=== PATIENT | female | born 1965 | race Caucasian/White ===

== ENCOUNTER → 2017-01-20 | Outpatient (CLI) | payer MEDICAID ==
[~2017-01-20] MED LIST: BETA2500 PO; BIOT25007 PO; DOCU100C37 PO; FLUT1DIS26 IH; GABA-486 PO; GABA600T2 PO; HYDR-3812 PO; HYDR-3816 PO; MULT-1021 PO; NAPR250T2 PO; RT-ALBUINH IH; SIME80TA16 PO; TRAZ150T72 PO; VITA-252 PO
== END ==
LOC: RAD 08:19
PROVIDERS: ATTEND Nurse Practitioner Family
DX: N64.4 Mastodynia (principal)

== ENCOUNTER 2017-02-01 12:16 | Outpatient (CLI) | payer MEDICAID ==
[~2017-02-01] VITALS: Ht 167.6 cm; Wt 62.6 kg
[~2017-02-01 12:16] MED LIST changes: -BETA2500 PO; -BIOT25007 PO; -DOCU100C37 PO; -GABA600T2 PO; -HYDR-3816 PO; -MULT-1021 PO; -NAPR250T2 PO; -SIME80TA16 PO; -TRAZ150T72 PO; -VITA-252 PO
[2017-02-01 12:23] VITALS: BP 140/96
[2017-02-01] MEDS ORDERED: GABA600T2 PO (12:30)
[2017-02-01] MEDS ORDERED: TRAZ150T72 PO (12:30)
[2017-02-01] MEDS ORDERED: VITA-252 PO (12:45)
[2017-02-01] MEDS ORDERED: MULT-1021 PO (12:45)
[2017-02-01] MEDS ORDERED: BIOT25007 PO (12:55)
[2017-02-01] MEDS ORDERED: BETA2500 PO (12:55)
== END 2017-02-01 12:44 | disposition home or self-care (01) ==
LOC: PREOP 12:16
PROVIDERS: ATTEND Obstetrics & Gynecology
DX: Z01.812 Encounter for preprocedural laboratory examination (principal); Z11.2 Encounter for screening for other bacterial diseases; N93.9 Abnormal uterine and vaginal bleeding, unspecified; N87.9 Dysplasia of cervix uteri, unspecified
CPT/HCPCS: 84703; 87081

== ENCOUNTER → 2017-02-01 | Outpatient (CLI) | payer MEDICAID ==
--- NOTE | 2017-02-01 18:08 | Diagnostic Imaging Report ---
Bilateral diagnostic mammogram. The current study was also evaluated with a Computer Aided Detection (CAD) system. COMPARISON: 12/19/2015. INDICATION: Bilateral breast pain, left breast lump. FINDINGS: The breasts are composed of heterogeneously dense parenchyma which may decrease mammographic sensitivity. This is mostly in the lateral aspect of each breast. There is a lobulated nodule with suggestion of central hilum seen projecting in the posterior central aspect of the right MLO view with similar appearing minimally smaller nodules seen on 2016 exam just above this location probably the same lymph node in the axillary tail region of the right breast. There is no suspicious calcification seen. IMPRESSION: No mammographic evidence of malignancy. Ultrasound evaluation pending. ACR BI-RADS Category 0: Incomplete. (Needs additional imaging evaluation). Result letter will be mailed to the patient. Note: At least 10% of breast cancer is not imaged by mammography. Dictated by: Dictated on workstation # [id number]
--- NOTE | 2017-02-01 18:10 | Diagnostic Imaging Report ---
Bilateral breast ultrasound. INDICATION: Bilateral breast pain and the patient also describes milky discharge on and off and relates to the cycle. FINDINGS: There is retroareolar duct ectasia seen bilaterally. The rest of the breast parenchyma and four quadrants on both sides demonstrate no suspicious abnormality. IMPRESSION: Duct ectasia. Clinical follow-up recommended. ACR BI-RADS Category 2: Benign findings. Dictated by: Dictated on workstation # [id number]
== END ==
LOC: RAD 07:31
PROVIDERS: ATTEND Nurse Practitioner Family
DX: N64.4 Mastodynia (principal)
CPT/HCPCS: 77066

== ENCOUNTER 2017-02-04 06:00 | Day surgery (SDC) | payer MEDICAID ==
[~2017-02-04] VITALS: Ht 167.6 cm; Wt 62.6 kg
[~2017-02-04 06:00] MED LIST changes: +BETA2500 PO; +BIOT25007 PO; +GABA600T2 PO; +MULT-1021 PO; +TRAZ150T72 PO; +VITA-252 PO
[2017-02-04 06:15] VITALS: BP_SYST 126; BP_DIAS 79; BP_DIAS 95
[2017-02-04] MEDS ORDERED: fentaNYL INJECTION 250 MCG/5 ML AMP ONE (06:44)
[2017-02-04] MEDS ORDERED: LIDOCAINE PF 2% 10 ML (XYLOCAINE) AMP ONE (06:44)
[2017-02-04] MEDS ORDERED: proPOfol 200 MG/20 ML (DIPRIVAN) VIAL IV ONE (06:44)
[2017-02-04] MEDS ORDERED: ONDANSETRON 4 MG/2 ML (SDV) Z0FRAN ONE ×3 (06:44→08:58)
[2017-02-04] MEDS ORDERED: DEXAMETHASONE PF 10 MG/ML (DECADRON) VIAL ONE (06:44)
[2017-02-04] MEDS ORDERED: MIDAZOLAM 2 MG/2 ML (VERSED) VIAL ONE (06:45)
[2017-02-04] MEDS ORDERED: ROCURONIUM 50 MG/5 ML (ZEMURON) VIAL IV ONE (06:45)
[2017-02-04] MEDS: LACTATED RINGERS 1,000 ML IV PRN ×2 (06:58→07:55)
[2017-02-04] MEDS ORDERED: metroNIDAZOLE 500 MG/100 ML IVPB (PRE-MIX) IV ONE (07:00)
[2017-02-04] MEDS ORDERED: ceFAZolin 1 GM/NS 50 ML IVPB IV ONE ×2 (07:00)
[2017-02-04] MEDS ORDERED: ONDANSETRON 4 MG/2 ML (SDV) Z0FRAN IV ONE (07:00)
[2017-02-04] MEDS ORDERED: SCOPOLAMINE 1.5 MG (TRANSDERM-SCOP) PATCH TOP ONE (07:00)
[2017-02-04] MEDS ORDERED: FAMOTIDINE 20MG/2ML IV (PEPCID) IV ONE (07:00)
--- NOTE | 2017-02-04 07:10 | Progress Note-Pre Operative ---
Pre-Operative Progress Note H&P Reviewed The H&P was reviewed, patient examined and no changes noted. Date H&P Reviewed: Feb 04, 2017 Time H&P Reviewed: 07:00 Pre-Operative Diagnosis: Recurrent cervical dysplasia, AUB, Vaginal wall polyp JADA IRVING DO Feb 04, 2017 7:10 am
[2017-02-04] MEDS ORDERED: BUPIVACAINE 0.25% 30 ML (SENSORCAINE) VIAL ONE (07:23)
[2017-02-04] MEDS ORDERED: LACTATED RINGERS 2,000 ML IV ONE (07:55)
[2017-02-04] MEDS ORDERED: hydrALAZINE (APESOLINE) 20 MG/ML VIAL ONE (08:30)
[2017-02-04] MEDS ORDERED: diphenhydrAMINE 50 MG/ML INJ (BENADRYL) ONE (08:53)
[2017-02-04] MEDS ORDERED: GLYCOPYRROLATE 0.2 MG/ML (ROBINUL) 2 ML VIAL ONE (08:53)
[2017-02-04] MEDS ORDERED: NEOSTIGMINE (BLOXIVERZ ) 1 MG/1ML 10 ML VIAL ONE (08:53)
[2017-02-04] MEDS ORDERED: HYDROmorphone (DILAUDID) 2 MG/ML VIAL ONE (08:58)
[2017-02-04] MEDS ORDERED: morphine INJ 10 MG/ML 1ML (SYR OR VIAL) ONE (08:58)
[2017-02-04] MEDS ORDERED: SEVOFLURANE (ULTANE) 15 ML INHAL SOLN ONE (09:00)
[2017-02-04] MEDS ORDERED: LACTATED RINGERS 1,000 ML IV SCH (09:09)
--- NOTE | 2017-02-04 09:12 | Discharge Inst-Women's Service ---
Discharge Inst-Women's Serv Depart Medication/Instructions New, Converted or Re-Newed RX: RX on Chart Consults/Follow Up Additional Follow Up: Yes Orders/Referrals 7-10 days and in 8 weeks Activity Activity: Activity as Tolerated Driving Instructions: No Driving for 1 Week NO SMOKING: NO SMOKING Nothing Inside Vagina: No Douching, No Tampons Diet Discharge Diet: No Restrictions Symptoms to Report to : Bleeding Excessive, Pain Increased, Fever Over 101 Degrees F, Vaginal Bleeding Increase, Questions/Concerns For Any Problems or Questions: Contact Your Physician Skin/Wound Care Infection Signs and Symptoms: Increased Redness, Foul Odor of Wound, Increased Drainage, Skin Itchy or Has a Rash, Increased Swelling, Temperature Above 101 F Operative Area Clean and Dry: Keep Incision Clean/Dry Stitches/Parrish/Dermabond: Dermabond, Care of Stitches Bathing Instructions: JADA Redmond DO Feb 04, 2017 09:12
[2017-02-04] MEDS ORDERED: SIME80TA16 PO (09:14)
[2017-02-04] MEDS ORDERED: NAPR250T2 PO (09:14)
[2017-02-04] MEDS ORDERED: HYDR-3816 PO (09:14)
[2017-02-04] MEDS ORDERED: DOCU100C37 PO (09:14)
[2017-02-04] MEDS ORDERED: ZOLPIDEM 5 MG (AMBIEN) TAB PO PRN (09:15)
[2017-02-04] MEDS ORDERED: SIMETHICONE 80 MG (MYLICON) CHEW PO PRN (09:15)
[2017-02-04] MEDS ORDERED: ONDANSETRON 4 MG/2 ML (SDV) Z0FRAN IV PRN (09:15)
[2017-02-04] MEDS ORDERED: ANTACID SUSP 30 ML UDC (MYLANTA) PO PRN (09:15)
[2017-02-04] MEDS ORDERED: ONDANSETRON 4 MG/2 ML (SDV) Z0FRAN IVP PRN (09:15)
[2017-02-04] MEDS ORDERED: CHLORASEPTIC LOZENGE MM PRN (09:15)
[2017-02-04] MEDS ORDERED: DOCUSATE SODIUM 100 MG (COLACE) CAP PO PRN (09:15)
[2017-02-04] MEDS ORDERED: KETOROLAC 30 MG/ML VIAL IV PRN (09:15)
[2017-02-04] MEDS ORDERED: HYDROcodone/APAP 7.5 MG/325 MG (LORTAB, LORCET PLUS) TABLET PO PRN (09:15)
--- NOTE | 2017-02-04 09:16 | Progress Note-Post Operative ---
Post-Operative Progess Note Surgeon (s)/Plate Furnace Operator (s) Surgeon JADA IRVING DO Plate Furnace Operator: Swetha Olivera Pre-Operative Diagnosis Recurrent cervical dysplasia, AUB, Vaginal wall polyp Post-Operative Diagnosis same Post-Op Procedure Note Date of Procedure: Feb 04, 2017 Name of Procedure Performed: RATLH with RSO and excision of vaginal wall lesion Description of the Procedure: see dictation Findings of the Procedure see dictation Anesthesia Type GETA Estimated blood loss (mL): min Specimen(s) collected/removed uterus bilateral tubes and right ovary, vaginal wall lesion JADA IRVING DO Feb 04, 2017 09:16
[2017-02-04] MEDS: morphine INJ 10 MG/ML 1ML (SYR OR VIAL) IVP PRN ×3 (09:22→09:34)
[2017-02-04 10:05] VITALS: BP 91/57
[2017-02-04 12:00] VITALS: BP_SYST 101; BP_SYST 97; BP_DIAS 61; BP_DIAS 65
--- NOTE | 2017-02-04 13:36 | OPERATIVE REPORT ---
DATE OF SERVICE: 02/04/2017 PREOPERATIVE DIAGNOSES: 1. A 51-year-old female with recurrent cervical dysplasia. 2. Abnormal uterine bleeding. 3. Left vaginal wall polyp. POSTOPERATIVE DIAGNOSES: 1. A 51-year-old female with recurrent cervical dysplasia. 2. Abnormal uterine bleeding. 3. Left vaginal wall polyp. PROCEDURE: Robotic-assisted laparoscopic hysterectomy with right salpingo-oophorectomy. SURGEON: Dr. Erich Irving. DISABILITY AIDE: ERMELINDA Cody ANESTHESIA: General endotracheal. ESTIMATED BLOOD LOSS: Minimal. URINE OUTPUT: 150 cc. FLUIDS: 1,500 cc lactated ringer solution. FINDINGS: Normal-appearing postmenopausal uterus with absent left ovary and left fallopian tube. Right ovary and fallopian tube appear grossly normal. There is a significant cystocele, rectocele and a beefy red appearing lesion of the right vaginal mucosa at the area of the vaginal fornix. SPECIMENS: Mucosal right vaginal fornix and biopsy and uterus, bilateral fallopian tubes and right ovary. INDICATIONS FOR PROCEDURE: This 51-year-old female is a patient who has been seen by me in my office for recurrent cervical dysplasia in followups on this finding. The patient has now undergone her third consecutive colposcopy without any progression of cervical dysplasia; however, it does not seem to go away. The patient wants to proceed with more definitive measures for recurrent cervical dysplasia. I discussed with the patient a LEEP excisional biopsy; however, she has undergone this as well in the past. She is wishing to proceed with hysterectomy. Risks of the procedure were discussed with the patient in detail, including risk of bleeding, infection, damage to surrounding structures, including but not limited to bowel, bladder, ureter, kidneys. We also discussed the fact that she does have prolapse and that this would be an indication for removing the uterus. Due to a mild amount of uterine prolapse with recurrent cervical dysplasia, we decided to proceed with this option. I also find on examination a beefy red lesion on the right vaginal wall. It appears to be a vaginal wall polyp. I discussed removal of this under anesthesia as well. She is agreeable to do this. After all of this was discussed with the patient, she was scheduled at her next earliest convenience. Consent was obtained in the preoperative area. The procedures were reviewed at that point, all questions were answered and the patient was taken to the operating room. OPERATIVE REPORT IN DETAIL: Once in the operating room, general anesthesia was found to be adequate, she was placed in the dorsal lithotomy position and prepped and draped in the normal sterile fashion. We first examined the patient under anesthesia. The uterus was rather large, free and mobile. There was no adnexal fullness or masses appreciated on bimanual examination. A weighted speculum was inserted into the patient's vagina after Perea catheter was placed using sterile technique. A right angle retractor was used to visualize the cervix. It was grasped at 12 o'clock position using a single-tooth tenaculum. A 0-Vicryl suture was placed to the anterior lip of the cervix and the single-toothed tenaculum was removed. I then used that suture as my retraction point. I am able to isolate this vaginal polyp on the right side, it is in the vaginal fornix, which is reassuring that it will be incorporated in my vaginal cuff closure. However, I do go ahead and excise this prior to proceeding with the hysterectomy. I grasped it with the long Allis clamp and excised underlying mucosal tissue using Metzenbaum scissors. It is not actively bleeding after excision and it is sent as the biopsy of the vaginal mucosa of the left vaginal fornix, after which I place a JIM uterine manipulator after sounding the uterine cavity up to 6 cm. The JIM uterine manipulator set to the 6 cm uterine manipulator tip. A 3.5 colpotomy ring is advanced around the vaginal fornix. Once this is all in place, I am able to demonstrate a firm bimanual manipulation on bimanual exam. I then performed a change of gloves and turned my attention to the abdomen, where infraumbilically I infiltrated this area using 0.025% Marcaine and made an 8 mm incision using a knife and proceeded with placement of Veress needle through this incision. After peritoneal placement is confirmed using saline drop test, I then proceed with insufflation using CO2 gas at a pressure of 5 mmHg. As noted, I proceeded with a maximum pressure of 15 mmHg, at which point, I removed the Veress needle and infused an 8 mm blunt da Elan camera trocar. Once this was in place, I am able to confirm intraperitoneal placement using the da Elan laparoscope. I then had the patient placed in steep Trendelenburg after briefly scanning the upper abdominal anatomy and there is no evidence of damage upon my entry site. I placed 2 lateral trocars approximately 8 cm lateral to my infraumbilical trocar and these are 8 mm trocars. The skin is infiltrated using 0.025% Marcaine and 8 mm incisions are made using a knife and the trocars are placed under direct visualization with laparoscope. Once these are in place, I bring in the da Elan robot and dock it in the appropriate fashion. Once it is docked, I place the da Elan vessel sealer in the left hand, monopolar arlin in the right hand. I then proceed with performing the following dissection bilaterally; inserting the infundibulopelvic ligament, I bipolar cauterize this and transect it using the da Elan vessel sealer. On the left side, there is a remnant of the infundibulopelvic ligament, however, care is taken to go ahead and bipolar cauterize this due to risk of bleeding with encountering a dissection. I then grasp the round ligament, bipolar cauterized and transected using vessel sealer. Then I am able to grasp the entire broad ligament and bipolar cauterize and transect using the vessel sealer down to the level of the lower uterine segment, at which point, I separate the anterior and posterior leaflets of the broad ligament anterior leaflets secondary to the anterior vaginal fornix, posterior leaflets taken down to the posterior vaginal fornix. This exposes the uterine vessels laterally, which are bipolar cauterized and transected using the vessel sealant. I then performed my colpotomy at 12 o'clock position and take this colpotomy circumferentially using monopolar sheers, after which the cervix, uterus, bilateral fallopian tubes and right ovary are removed through the vagina. After they are removed, I proceed with closing the vaginal cuff using 2-0 Vicryl suture in a [id number] fashion on the copious end of uterosacral ligaments, I then closed the remainder of the vaginal cuff using 2-0 V-Lock in a running fashion. I then undocked the da Elan robot and removed all the needles from the patient's abdomen and then proceeded with copiously irrigating the pelvis using normal saline. There is no active bleeding from any of my dissection planes. I then placed FloSeal hemostatic agent over all my planes of dissection. Once again, no active bleeding is noted from any of my dissection planes. I had the patient taken out of steep Trendelenburg and removed the lateral trocars under direct visualization of laparoscope. The infundibular trocar was left in place to release insufflation and to introduce 3 mL of 0.025% Marcaine. After this is done, this trocar is removed. The incision then was closed using 4-0 Monocryl in interrupted subcuticular stitches. Dermabond was applied to the incision. Band-Aids were placed over these. Perea catheter was left in place. The vagina is examined. There is no bleeding noted from my excision of the left vaginal fornix. The patient tolerated the procedure well and was sent to recovery in stable condition. Two grams of Ancef, 500 mg Flagyl were given preoperatively for infection prophylaxis. Lap, sponge and needle counts were correct at the end of the procedure. Job ID: [id number] DocumentID: [id number] Dictated Date: 02/04/2017 09:45:22 R[place]eman Date: 02/04/2017 11:55:20 Dictated By: ERICH IRVING DO
[2017-02-04] MEDS ORDERED: BUPIVACAINE 0.25% 30 ML (SENSORCAINE) VIAL INJ ONE (14:00)
[2017-02-04 16:00] VITALS: BP 102/67
[2017-02-04] MEDS ORDERED: NAPROXEN 250 MG (NAPROSYN) TABLET PO SCH (21:00)
== END 2017-02-04 16:30 | disposition home or self-care (01) ==
LOC: SDC 06:00 → WS 10:25 → SDC 16:30
PROVIDERS: ATTEND Obstetrics & Gynecology
DX: N87.9 Dysplasia of cervix uteri, unspecified (principal); N93.9 Abnormal uterine and vaginal bleeding, unspecified; N84.2 Polyp of vagina; N81.10 Cystocele, unspecified; N81.6 Rectocele; N80.0 Endometriosis of uterus
CPT/HCPCS: 84703; 86850; 86900; 86901; 88305; 88307; 94664

== ENCOUNTER → 2018-02-10 | Outpatient (CLI) | payer MEDICAID ==
[~2018-02-10] MED LIST changes: +ACHD5005 PO; +DOCU100C37 PO; +HYDR-34 PO; -HYDR-3812 PO; +NAPR250T6 PO; +SIME80TA16 PO
--- NOTE | 2018-02-10 19:33 | Diagnostic Imaging Report ---
INDICATION: Routine screening. Comparison is made with prior study 02/01/2017 and 12/19/2015. TECHNIQUE: Bilateral 3D digital tomographic views were obtained with Satietyia and reviewed on a [employer] workstation. In addition, CAD - computer aided detection was utilized. FINDINGS: Scattered fibronodular densities are identified bilaterally. No dominant mass or malignant-appearing microcalcifications are seen. The lymph nodes in the axillary tail on the right are again noted. IMPRESSION: No mammographic features suspicious for malignancy are identified. ACR BI-RADS Category 2: Benign findings. Result letter will be mailed to the patient. Note: At least 10% of breast cancer is not imaged by mammography. Dictated by: Dictated on workstation # [id number]
== END ==
LOC: RAD 10:53
PROVIDERS: ATTEND Obstetrics & Gynecology
DX: Z12.31 Encounter for screening mammogram for malignant neoplasm of breast (principal)
CPT/HCPCS: 77067

== ENCOUNTER → 2019-03-08 | Outpatient (CLI) | payer MEDICAID ==
[~2019-03-08] MED LIST changes: -GABA600T2 PO; +GBPN600T PO
--- NOTE | 2019-03-08 15:04 | Diagnostic Imaging Report ---
INDICATION: Routine screening. COMPARISON: 02/10/2018 and 02/01/2017. TECHNIQUE: 2D and 3D bilateral screening mammography was performed with CAD. FINDINGS: Scattered fibroglandular densities are identified bilaterally. No mass or malignant appearing microcalcifications are seen. The axillae are unremarkable. IMPRESSION: No mammographic features suspicious for malignancy are identified. ACR BI-RADS Category 1: Negative. Result letter will be mailed to the patient. Note: At least 10% of breast cancer is not imaged by mammography. Dictated by: Dictated on workstation # [id number]
== END ==
LOC: RAD 10:31
PROVIDERS: ATTEND Obstetrics & Gynecology
DX: Z12.31 Encounter for screening mammogram for malignant neoplasm of breast (principal)
CPT/HCPCS: 77067

== ENCOUNTER → 2020-04-29 | Outpatient (CLI) | payer OTHER ==
[~2020-04-29] MED LIST changes: -BETA2500 PO; +[UNRECOGNIZED DRUG - CODE] PO
--- NOTE | 2020-04-29 14:04 | Diagnostic Imaging Report ---
INDICATION: Routine screening. Comparison is made with prior mammogram from 03/08/2019 and 02/10/2018. 2-D and 3-D bilateral screening mammography was performed with CAD. Scattered fibroglandular densities are identified bilaterally. The parenchymal pattern is stable. No mass or malignant appearing microcalcifications are identified. The axillae are unremarkable. IMPRESSION: BI-RADS Category 1 No mammographic features suspicious for malignancy are identified. ACR BI-RADS Category 1: Negative. Result letter will be mailed to the patient. Note: At least 10% of breast cancer is not imaged by mammography. Dictated by: Dictated on workstation # [id number]
== END ==
LOC: RAD 11:02
PROVIDERS: ATTEND Nurse Practitioner Family
DX: Z12.31 Encounter for screening mammogram for malignant neoplasm of breast (principal)
CPT/HCPCS: 77063; 77067

== ENCOUNTER → 2021-12-09 | Outpatient (CLI) | payer MEDICAID ==
[~2021-12-09] MED LIST changes: +NAPR-1088 PO; -NAPR250T6 PO
--- NOTE | 2021-12-09 16:01 | Diagnostic Imaging Report ---
INDICATION: Routine screening. COMPARISON: 04/29/2020 and 03/08/2019. TECHNIQUE: 2D and 3D bilateral screening mammography was performed with CAD. FINDINGS: Scattered fibroglandular densities are identified bilaterally. The parenchymal pattern is stable. No mass or malignant-appearing microcalcifications are seen. Axillae are unremarkable. IMPRESSION: No mammographic features suspicious for malignancy are identified. ACR BI-RADS Category 1: Negative. Result letter will be mailed to the patient. Note: At least 10% of breast cancer is not imaged by mammography. Dictated by: Dictated on workstation # [id number]
== END ==
LOC: RAD 13:15
PROVIDERS: ATTEND Obstetrics & Gynecology
DX: Z12.31 Encounter for screening mammogram for malignant neoplasm of breast (principal)
CPT/HCPCS: 77063; 77067